=== PATIENT | male | born 1945 | race Caucasian/White ===

== ENCOUNTER → 2023-06-21 | Outpatient (CLI) | payer OTHER | END | disposition home or self-care (01) | LOC: RAD 09:26 | PROVIDERS: ATTEND Nurse Practitioner | DX: I70.0 Atherosclerosis of aorta (principal); Z00.00 Encounter for general adult medical examination without abnormal findings; M47.814 Spondylosis without myelopathy or radiculopathy, thoracic region | CPT/HCPCS: 71046 ==